=== PATIENT | female | born 1985 | race Caucasian/White ===

== ENCOUNTER 2022-11-12 03:56 | Emergency (ER) | payer BC ==
[2022-11-12] MEDS ORDERED: Morphine 4 MG/ML VIAL ONE (04:28)
[2022-11-12 04:30] LABS: Bilirubin Negative (Negative); Blood, Urine Negative (Negative); Clarity Clear (Clear); Glucose, Urine (Dipstick) Negative (Negative); Ketone, Urine Negative (Negative); Leukocyte Negative (Negative); Nitrite Negative (Negative); Protein, Urine (Dipstick) Negative (Neg-Trace); Urobilinogen 0.2 mg/dL (Less than 2)
[2022-11-12 04:33] LABS: Pregnancy Test - Urine (BHCG) Negative (Negative); Pregu Control Background? CLEAR/WHITE (CLR/WHITE); Pregu Control Bar Appear? YES (CONTROL BAR)
== END 2022-11-12 05:18 | disposition home or self-care (01) ==
LOC: MADERS 03:56
DX: M54.50 Low back pain, unspecified (principal); I10 Essential (primary) hypertension; E03.9 Hypothyroidism, unspecified; Z79.899 Other long term (current) drug therapy
CPT/HCPCS: 81003; 81025; 96372; 99283; J2270

== ENCOUNTER 2022-11-16 05:17 | Emergency (ER) | payer BC ==
[2022-11-16] MEDS ORDERED: Ketorolac Tromethamine 30 MG/ML VIAL ONE (06:41)
== END 2022-11-16 07:01 | disposition home or self-care (01) ==
LOC: MADERS 05:17
DX: M51.25 Other intervertebral disc displacement, thoracolumbar region (principal); E03.9 Hypothyroidism, unspecified; I10 Essential (primary) hypertension; F17.210 Nicotine dependence, cigarettes, uncomplicated
CPT/HCPCS: 96372; 99283; J1885

== ENCOUNTER 2022-11-25 20:13 | Emergency (ER) | payer BC ==
[2022-11-25] MEDS ORDERED: Lidocaine 1% PF 5 ML VIAL ONE (20:35)
[2022-11-25] MEDS ORDERED: Cephalexin 500 MG CAP ONE (20:35)
[2022-11-25] MEDS ORDERED: Boostrix 0.5 ML (Tdap) VIAL (>/=7 yrs of age) ONE (20:35)
[2022-11-25] MEDS ORDERED: Bacitracin 1 PK ONE (20:35)
== END 2022-11-25 22:05 | disposition home or self-care (01) ==
LOC: MADERS 20:13
DX: S91.115A Laceration without foreign body of left lesser toe(s) without damage to nail, initial encounter (principal); E03.9 Hypothyroidism, unspecified; I10 Essential (primary) hypertension; F17.210 Nicotine dependence, cigarettes, uncomplicated; W25.XXXA Contact with sharp glass, initial encounter; Z23 Encounter for immunization; Z79.899 Other long term (current) drug therapy
CPT/HCPCS: 12002; 90471; 90715